=== PATIENT | female | born 1940 | race African-American/Black ===

== ENCOUNTER → 2016-11-27 | Outpatient (CLI) | payer OTHER ==
[~2016-11-27] MED LIST: AMBIEN 5 MG TABL5 M1 PO; ANTIVERT25 MG PO; ASPIRIN EC81 M1 PO; CO Q-10100 MG PO; HYDREA 500 MG500 M1 PO; LIPITOR20 MG PO; LISINOPRIL-HCT1 EAC1 PO; LUMIGAN2.5 M1 OPHTHALMIC; NABUMETONE 750750 M1 PO; NAPROSYN250 MG PO; NAPROSYN500 MG PO; NEXIUM40 MG PO; PERCOCET PO; PRAVACHOL40 MG PO; PRAVASTATIN SOD20 MG PO; PREDNISONE 20 M20 MG PO; SIMVASTATIN40 MG PO; TIMOLOL MA0.25 %/5 M OP; TRAMADOL 50 MG50 MG PO; ULTRAM 50MG TAB50 MG PO; VALSARTAN-HCTZ1 EACH PO; VITAMIN D-32000 UNIT PO; ZANAFLEX4 MG PO
== END ==
LOC: RAD 05:16 → MRI 05:16 → RAD 16:05
DX: G31.9 Degenerative disease of nervous system, unspecified (principal); G56.03 Carpal tunnel syndrome, bilateral upper limbs; R51 Headache